=== PATIENT | female | born 1970 | race Caucasian/White ===

== ENCOUNTER 2016-11-10 11:30 | Emergency (ER) | payer OTHER ==
[~2016-11-10] VITALS: Ht 162.6 cm; Wt 70.8 kg
[~2016-11-10 11:30] MED LIST: HYDR-2762 PO
[2016-11-10 11:40] VITALS: BP 129/105
[2016-11-10] MEDS ORDERED: OXYC-323 PO (12:13)
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
--- NOTE | 2016-11-10 12:22 | RAD ---
Indication left shoulder pain. The history of left humeral fracture has been provided. 2 AP views of the left shoulder as well as a Y view were obtained. There is a fracture of the left humeral neck. The chronicity of the fracture is uncertain. (It does not have the typical appearance of an acute fracture). Clinical correlation and/or comparison with prior exams advised. An additional bony finding is not seen
== END 2016-11-10 12:17 | disposition home or self-care (01) ==
LOC: ER 11:30
DX: S42.202A Unspecified fracture of upper end of left humerus, initial encounter for closed fracture (principal); Z88.2 Allergy status to sulfonamides; V29.9XXA Motorcycle rider (driver) (passenger) injured in unspecified traffic accident, initial encounter; Y93.89 Activity, other specified; Y99.8 Other external cause status; Y92.89 Other specified places as the place of occurrence of the external cause
CPT/HCPCS: 73030; 99284